=== PATIENT | female | born 1975 | race African-American/Black ===

== ENCOUNTER 2022-10-18 02:01 | Day surgery (SDC) | payer BC, SELFPAY ==
--- NOTE | 2022-10-11 16:10 | SUR.PREOP ---
Report to the Outpatient Waiting Room, entrance under the green pavilion located off [facility], at time 1000 on date 10/18/22. Planned Procedure Time: 1200. Time changes happen often and if your time is changed the preop area will call you the afternoon before. - You and your visitor will be asked to self-screen and do not enter if you have any COVID symptoms. - A mask is optional within the hospital at this time. Patients may have clear liquids (water, carbonated beverages, clear teas, apple juice) until 3 hours prior to surgery with a maximum of 20 ounces. - No food from midnight until time of surgery - Infants may have breast milk until 4 hours before surgery, infant formula 6 hours prior to surgery. - Children will be allowed to drink immediately following surgery. If applicable, please bring a bottle or sippy cup to assist with drinking. Juice, water, soda, and popsicles are readily available. For infants on formula, please bring formula the day of surgery. Pacifiers are allowed. Take the following medications with a SIP of water the morning of surgery: N/A DO NOT STOP ANY OF YOUR OTHER PRESCRIPTION MEDICATIONS PRIOR TO SURGERY ?EXCEPT THE FOLLOWING Medications to discontinue per physician N/A Date to take last dose N/A Please no make-up, nail irish, hairspray, perfume, deodorant, or body powder the day of surgery. No jewelry (including any body piercings) or valuables the day of surgery, leave them at home. Please take a shower or bath the night before, or the morning of, surgery with an antibacterial soap. Wear comfortable, loose fitting clothing. Children are encouraged to wear pajamas. - Jewelry must be removed prior to entering the operating room. Rings and piercings that are not removed may be cut off. - The hospital will not accept responsibility for valuables. - Please leave all valuables, including medications, at home the day of surgery. If you are going home after surgery, a licensed sales warehouse driver must drive you home. - NO public transportation without another adult if you receive anesthesia. - We recommend that an adult stay with you for 24 hours following discharge. - We also recommend that you do not drive, make important decision, drink alcoholic beverages, or take any drugs that were not prescribed by your health care provider for at least 24 hours after your discharge time. For Pediatric surgeries, we recommend two adults accompany the child home. Follow any additional instructions given to you from your surgeon. If you or anyone in your household have experienced Covid symptoms in the past week, please notify your surgeon or the nurse liaison at the phone number below for possible testing. Telephone instructions given to GENARO DALEY and asked if any additional questions and then verbalized understanding. Patient advised to call surgeon office or pre surgery nurse liaison [phone] if any additional questions.
[2022-10-11 16:19] VITALS: BMI 58.5
--- NOTE | 2022-10-15 18:21 | P.PNAN_ITS ---
Anes - Eval Pre Procedure Procedure: Operation Date: 10/18/22 12:00 Proposed Procedures p Bilateral Laparoscopic Salpingectomy - Kandi Miller MD Date/Time: 10/15/22 18:21 Pre Op Diagnosis: desires sterilization Patient Data Age: 46 Gender: F Height: 1.57 m Weight: 145.2 kg Allergies Allergy/AdvReac Type Severity Reaction Status Date / Time nut - unspecified Allergy Severe Hives Verified 10/11/22 16:18 Penicillins Allergy Severe Difficulty Verified 10/11/22 16:18 Breathing Home Medications Medication Instructions Recorded Confirmed Type amlodipine 5 mg-benazepril 10 mg 1 cap PO HS 10/11/22 10/11/22 History capsule drospirenone (contraceptive) 4 mg 4 mg PO DAILY 10/11/22 10/11/22 History (28) tablet (Slynd) ergocalciferol (vitamin D2) 1,250 1,250 mcg PO WEEKLY 10/11/22 10/11/22 History mcg (50,000 unit) capsule polysaccharide iron complex 150 mg 150 mg PO EVERY OTHER DAY 10/11/22 10/11/22 History iron capsule Patient hx anesthesia problems: post op nausea/vomiting Family hx anesthesia problems: none Results Review: All pre-operative results and documents have been reviewed as part of the pre- operative evaluation. [facility] Past Medical History Medical History (Updated 10/15/22 @ 18:23 by Thais Prabhakar CRNA) Anemia Asthma Brain bleed Migraines, neuralgic Morbid obesity with BMI of 50.0-59.9, adult PONV (postoperative nausea and vomiting) Social History Social History Smoking status: Never smoker Living arrangements: with family Spiritual care concerns: No Exam Day of Procedure 10/15/22 18:21
[2022-10-18] VITALS (13 sets, daily range): BP systolic 96–132; BP diastolic 60–82; PULSE 48–79; RESP 14–20; TEMP 36.5–36.6; O2SAT 94–100
--- NOTE | 2022-10-18 08:49 | WPDHPUPDATE1 ---
History and Physical Update Update Date/Time: 10/18/22 08:49 History and Physical has been reviewed, including an updated exam of the patient. There are NO changes in the patient's condition. Risks, benefits, and alternatives have been discussed and questions answered. Patient agrees to proceed with procedure.
--- NOTE | 2022-10-18 08:49 | PM.HPGS ---
History of Present Illness History of Present Illness Consent: Risks, benefits, and alternatives have been discussed and questions answered. Patient agrees to proceed with procedure. Chief complaint: desires sterilization Narrative: Jatin Russ is a 47 year old female who has completed her childbearing and presents for permanent control via laparoscopic salpingectomy. Risks of infection, bleeding, perforation or injury to internal organs, failure with increased ectopic, and general anesthesia are reviewed. Patient voices understanding and agrees to proceed. Review of Systems Review of Systems: not repeated day of surgery; patient states no changes in status [facility] Past Medical History Medical History (Updated 10/18/22 @ 08:53 by Kandi Miller MD) Anemia Asthma Brain bleed HTN (hypertension) Migraines, neuralgic Morbid obesity with BMI of 50.0-59.9, adult PONV (postoperative nausea and vomiting) Surgical History Surgical History (Updated 10/18/22 @ 08:52 by Kandi Miller MD) History of x2 History of endometrial ablation patient is unsure of her history but thinks she had an ablation in 2016 S/P ACL repair 2004 Social History Social History Smoking status: Never smoker Living arrangements: with family Spiritual care concerns: No Meds Home Medications and Allergies Home Medications Medication Instructions Recorded Confirmed Type amlodipine 5 mg-benazepril 10 mg 1 cap PO HS 10/11/22 10/11/22 History capsule drospirenone (contraceptive) 4 mg 4 mg PO DAILY 10/11/22 10/11/22 History (28) tablet (Slynd) ergocalciferol (vitamin D2) 1,250 1,250 mcg PO WEEKLY 10/11/22 10/11/22 History mcg (50,000 unit) capsule polysaccharide iron complex 150 mg 150 mg PO EVERY OTHER DAY 10/11/22 10/11/22 History iron capsule Allergies Allergy/AdvReac Type Severity Reaction Status Date / Time nut - unspecified Allergy Severe Hives Verified 10/11/22 16:18 Penicillins Allergy Severe Difficulty Verified 10/11/22 16:18 Breathing Exam Const: General: obese ( weight 326 with BMI 59.8) Orientation/consciousness: patient oriented x3 Resp: Effort & Inspection: normal respiratory effort GI: GI Palp: Yes Soft to palpation, No Tenderness to palpation present (GI) and No Palpable mass present : External Female Exam: normal external appearance Speculum Exam - Vagina: normal appearance of the vagina and normal vaginal discharge Speculum Exam - Cervix: normal appearance of the cervix Bimanual exam- vagina & uterus: uterine size normal and consistency normal Bimanual Exam- Adnexa, other: normal adnexae and No adnexal tenderness Neuro: General: patient oriented x3 Assessment and Plan Assessment and plan (1) Encounter for sterilization: Code(s): Z30.2 - Encounter for sterilization Status: Acute Assessment and Plan: plan to proceed with laparoscopic bilateral salpingectomy
--- NOTE | 2022-10-18 10:28 | ECG_ITS ---
Measurements Intervals [place] Rate: 57 P: 37 OR: 177 QRS: 5 QRSD: 91 T: -19 QT: 426 QTc: 418 Interpretive Statements SINUS BRADYCARDIA VOLTAGE CRITERIA FOR LVH ST-T WAVE ABNORMALITY IN INFERIOR LEADS- CONSIDER ISCHEMIA ABNORMAL ECG NO PREVIOUS ECG AVAILABLE FOR COMPARISON Electronically Signed On 10-18-2022 11:51:40 CDT by Germán Lam D.O.
[2022-10-18] MEDS: LACTATED RINGERS 1,000 ML 30 ML IV CONT ×2 (11:08→13:16)
[2022-10-18] MEDS: ACETAMINOPHEN 500 MG TABLET 1000 MG PO (11:09)
[2022-10-18 11:11] LABS: Hematocrit 33.7 % (37.0-47.0); Hemoglobin 10.3 g/dL (12.0-15.0)
[2022-10-18] MEDS: KETOROLAC 15 MG/ML VIAL (*BKC) IV PUSH (11:11)
--- NOTE | 2022-10-18 11:24 | P.PNAN_ITS ---
Anes - Eval Final PreProcedure Day of Procedure 10/18/22 11:24 Patient weight: super morbidly obese Heart: regular rate and rhythm Lungs: clear to auscultation Airway: Mallampati scale class II Neurological: alert and oriented Last oral intake: >/= 8 hours ASA classification: III Emergent: no Anesthetic plan: proceed Anesthesia type and monitoring: general ETT and standard monitoring Results Review: All pre-operative results and documents have been reviewed as part of the pre- operative evaluation. Informed Consent: The patient's anesthetic plan and its attendant risks and benefits were discus sed with the patient/family/POA. Questions were solicited and answers provided to the satisfaction of the patient/family/POA.
[2022-10-18] MEDS: SCOPOLAMINE 1.5 MG PATCH TRANSDERM (11:31)
--- NOTE | 2022-10-18 13:05 | W.PM.PROC2 ---
Procedure Note - Detailed Date of Procedure 10/18/22 Pre-op Diagnosis desires sterilization; Morbid obesity with a BMI of 59 Post-op Diagnosis Same Procedure Performed laparoscopic bilateral salpingectomy Surgeon Kandi Miller MD Anesthesia General Findings normal-appearing tubes, ovaries, Description of Procedure The patient is taken to the operating room and placed under anesthesia in the dorsal lithotomy position. She was prepped and draped in usual sterile fashion. The patient's urethra was very small and displaced to the right. With difficulty the urethra was catheterized and the bladder was drained with a red rubber catheter. A bivalve speculum was then placed in the vagina and the cervix grasped on the anterior lip with a tenaculum. The acorn manipulator was placed. The speculum was removed. Attention was then turned to the abdomen where a vertical skin incision was made at the base of the umbilicus. The abdomen is tented with towel clamps and the long Veress needle placed. The patient started bucking and the Veress needle was removed while anesthesia made the patient deeper. Once the patient was okayed by anesthesia the abdomen was again tented and the long Veress needle placed. Opening patient pressure was 12mmHg. This is while tenting with a towel clamp bilaterally and elevating the lower pannus bilaterally . The pneumoperitoneum was being obtained however the pressure quickly went [id number] and after discussion with Anesthesia the baseline limit of pressure was set [id number]. The Veress needle was then removed and the long 5mm Optiview placed. When placing at the usual angle it was too short to reach the peritoneum. It was removed and placed straight down while watching with the camera. It appeared that the tip of trocar did appears the peritoneum. The camera was removed and the port insert removed. The camera was replaced and noted to be still within fat. The trocar was again removed and at a different angle slightly to the left and straight down the trocar was placed. When removing the port insert and camera and replacing the camera this time the camera was within the abdominal cavity. She was then placed in Trendelenburg. Two additional ports were placed in the lower quadrants 2cm above the symphysis pubis 1 to the left and 1 to the right under direct visualization. The right tube was brought into the surgical field and grasped with an atraumatic grasper at its fimbriated end. The LigaSure was used to clamp, cauterize, and cut the mesio salpinx until the cornua was reached. The tube was then cross clamped cauterized and cut. The identical procedure was performed on the left side. Both tubes were removed through the lower port. Pneumoperitoneum was reduced and trocars removed. Skin incisions were closed using 4 0 nylon in an interrupted fashion. Vaginal instruments are removed. Sponge, needle, and instrument counts are correct per the OR staff. Patient was awakened from anesthesia and taken to recovery in stable condition. Estimated Blood Loss 5 Drains No Packing No Pathology Yes ( Bilateral tubes) Complications No immediate complications Condition Stable Disposition PACU
[2022-10-18] MEDS: ONDANSETRON INJ 4 MG/2 ML VIAL IV PUSH (13:58)
[2022-10-18] MEDS: fentaNYL CITRATE INJ (*CRX) 100 MCG/2 ML VIAL 25 MCG IV PUSH ×2 (14:04→14:28)
== END 2022-10-18 16:10 | disposition home or self-care (01) ==
PROVIDERS: Anesthesiology; PCP Internal Medicine; Visit Provider Obstetrics & Gynecology Gynecology
PROC: (CPT 49320; principal; 2022-10-18 12:00)
DX: Z30.2 Encounter for sterilization (principal); N83.8 Other noninflammatory disorders of ovary, fallopian tube and broad ligament; D64.9 Anemia, unspecified; I10 Essential (primary) hypertension; E66.01 Morbid (severe) obesity due to excess calories; Z68.43 Body mass index [BMI] 50.0-59.9, adult
CPT/HCPCS: 58661; 36415; 85014; 85018; 88302; 93005; A9270; J0330; J1100; J1885; J2250; J2405; J2590; J2704; J2710; J3010; J7120